=== PATIENT | female | born 1960 | race Caucasian/White ===

== ENCOUNTER → 2017-10-06 | Outpatient (CLI) | payer OTHER ==
[~2017-10-06] MED LIST: DIAZ5 PO; HYDACE5 PO; PRED10 PO
[2017-10-06 18:12] LABS: BASOPHILS ABSOLUTE AUTO 0.07 K/mm3 (0.00-0.23); BASOPHILS PERCENT AUTO 1 % (0-2); EOSINOPHILS ABSOLUTE AUTO 0.25 K/mm3 (0.00-0.68); EOSINOPHILS PERCENT AUTO 3 % (0-6); Hematocrit 40.1 % (33.0-51.0); Hemoglobin 13.8 g/dL (11.5-16.0); IMMATURE GRAN ABSOLUTE AUTO 0.02 K/mm3 (0.00-0.10); IMMATURE GRAN PERCENT AUTO 0 % (0-1); LYMPHOCYTES ABSOLUTE AUTO 2.34 K/mm3 (0.84-5.20); LYMPHOCYTES PERCENT AUTO 26 % (21-46); MONOCYTES ABSOLUTE AUTO 0.47 K/mm3 (0.16-1.47); MONOCYTES PERCENT AUTO 5 % (4-13); Mean Corpuscular HGB 30.7 pg (26.0-34.0); Mean Corpuscular HGB Conc 34.4 g/dL (31.5-36.5); Mean Corpuscular Volume 89 fL (80-100); Mean Platelet Volume 9.8 fL (9.1-12.4); NEUTROPHILS PERCENT AUTO 65 % (41-73); Platelet Count 364 K/mm3 (150-400); RDW Coefficient Variation 12.4 % (11.7-14.2); RDW Standard Deviation 40.5 fL (35.1-46.3); White Blood Cell Count 8.95 K/mm3 (4.00-11.30)
[2017-10-06 18:22] LABS: Alanine Aminotransfer (ALT/SGP 22 U/L (12-78); Albumin, Blood 3.9 g/dL (3.4-5.0); Albumin/Globulin Ratio 1.1 (0.8-1.8); Alk Phos 121 U/L (50-136); Anion Gap 10 mmol/L (6-16); Aspartate Aminotrans (AST/SGOT 16 U/L (12-37); Bilirubin, Total 0.4 mg/dL (0.1-1.0); Blood Urea Nitrogen 12 mg/dL (8-24); Bun/Creatinine Ratio 16.5 (12.0-20.0); CHOL/HDL RATIO 5.1; CO2, Blood 24 mmol/L (21-32); Calcium, Blood 9.1 mg/dL (8.5-10.1); Chloride, Blood 107 mmol/L (98-108); Cholesterol 260 mg/dL (50-200); Creatinine, Blood 0.73 mg/dL (0.40-1.00); Globulin, Blood 3.7 g/dL (2.2-4.0); Glomerular Filtration Rate >60 (60-); Glucose, Blood 96 mg/dL (70-99); HDL Cholesterol 51 mg/dL (>39); LDL/HDL RATIO 2.9; Low Density Lipoprotein Chol 146 mg/dL (0-110); Potassium, Blood 3.8 mmol/L (3.5-5.5); Sodium, Blood 141 mmol/L (136-145); Total Protein, Blood 7.6 g/dL (6.4-8.2); Triglycerides 313 mg/dL (30-160); Very Low Density Lipoprot Chol 62 mg/dL (6-32)
[2017-10-06 18:25] LABS: Thyroid Stimulating Hormone 0.708 uIU/mL (0.360-4.800)
[2017-10-08 06:18] LABS: COMPLEMENT C3, SERUM 180 mg/dL (82-167); COMPLEMENT C4, SERUM 27 mg/dL (14-44)
== END ==
LOC: LAB SHORT 11:15 → LAB 11:15
PROVIDERS: Nurse Practitioner Adult Health
DX: R10.11 Right upper quadrant pain (principal); G89.4 Chronic pain syndrome; R11.2 Nausea with vomiting, unspecified; R20.2 Paresthesia of skin; R03.0 Elevated blood-pressure reading, without diagnosis of hypertension
CPT/HCPCS: 80053; 80061; 84439; 84443; 85025; 86430

== ENCOUNTER → 2017-10-15 | Outpatient (CLI) | payer OTHER ==
[2017-10-19 15:07] LABS: HPV 16 Negative (Negative); HPV 18 Negative (Negative); HPV OTHER HR TYPES Negative (Negative)
== END ==
LOC: LAB SHORT 15:37 → LAB 15:37
PROVIDERS: Registered Nurse Community Health
DX: Z12.4 Encounter for screening for malignant neoplasm of cervix (principal)
CPT/HCPCS: 87624; G0123

== ENCOUNTER 2020-07-21 14:58 | Emergency (ER) | payer BC, OTHER ==
[~2020-07-21] VITALS: Ht 157.5 cm; Wt 113.4 kg
[2020-07-21] MEDS ORDERED: OMEP20ER PO (15:14)
[2020-07-21] MEDS ORDERED: Venlafaxine HCl75 MG PO (15:14)
[2020-07-21] MEDS ORDERED: PREGABALIN PO (15:14)
[2020-07-21] MEDS ORDERED: Simvastatin20 MG PO (15:14)
[2020-07-21 15:34] LABS: BASOPHILS ABSOLUTE AUTO 0.06 K/mm3 (0.00-0.23); BASOPHILS PERCENT AUTO 1 % (0-2); EOSINOPHILS PERCENT AUTO 2 % (0-6); Hematocrit 37.8 % (33.0-51.0); Hemoglobin 12.5 g/dL (11.5-16.0); IMMATURE GRAN ABSOLUTE AUTO 0.03 K/mm3 (0.00-0.10); IMMATURE GRAN PERCENT AUTO 0 % (0-1); LYMPHOCYTES ABSOLUTE AUTO 1.93 K/mm3 (0.84-5.20); LYMPHOCYTES PERCENT AUTO 17 % (21-46); MONOCYTES ABSOLUTE AUTO 0.68 K/mm3 (0.16-1.47); MONOCYTES PERCENT AUTO 6 % (4-13); Mean Corpuscular HGB 31.3 pg (26.0-34.0); Mean Corpuscular HGB Conc 33.1 g/dL (31.5-36.5); Mean Corpuscular Volume 95 fL (80-100); Mean Platelet Volume 10.1 fL (9.1-12.4); NEUTROPHILS ABSOLUTE AUTO 8.83 K/mm3 (1.96-9.15); NEUTROPHILS PERCENT AUTO 75 % (41-73); Platelet Count 270 K/mm3 (150-400); RDW Coefficient Variation 12.8 % (11.7-14.2); RDW Standard Deviation 44.3 fL (35.1-46.3); White Blood Cell Count 11.73 K/mm3 (4.00-11.30)
[2020-07-21 16:02] LABS: Alanine Aminotransfer (ALT/SGP 20 U/L (12-78); Albumin, Blood 3.8 g/dL (3.4-5.0); Albumin/Globulin Ratio 1.1 (0.8-1.8); Alk Phos 110 U/L (50-136); Anion Gap 5 mmol/L (6-16); Aspartate Aminotrans (AST/SGOT 15 U/L (12-37); Bilirubin, Total 0.3 mg/dL (0.1-1.0); Blood Urea Nitrogen 19 mg/dL (8-24); Bun/Creatinine Ratio 22.2 (12.0-20.0); CO2, Blood 23 mmol/L (21-32); Calcium, Blood 8.9 mg/dL (8.5-10.1); Chloride, Blood 113 mmol/L (98-108); Creatinine, Blood 0.86 mg/dL (0.40-1.00); Globulin, Blood 3.4 g/dL (2.2-4.0); Glomerular Filtration Rate >60 (60-); Glucose, Blood 111 mg/dL (70-99); Sodium, Blood 141 mmol/L (136-145); Total Protein, Blood 7.2 g/dL (6.4-8.2)
[2020-07-21] MEDS ORDERED: Norco 5-325 Ta1 EACH PO (18:30)
[2020-07-25] MEDS ORDERED: LISI5 (09:01)
[2020-07-25] MEDS ORDERED: VENLAFAXINE H37.5 M1 PO (20:27)
[2020-07-25] MEDS ORDERED: PREG75 PO (21:27)
[2020-07-26] MEDS ORDERED: AMLO5 PO (16:53)
[2020-07-26] MEDS ORDERED: BENADRYL25 MG PO (16:54)
[2020-07-26] MEDS ORDERED: PRED20 PO (16:55)
[2020-07-26] MEDS ORDERED: HYDR1TAB94 PO (16:55)
== END 2020-07-21 18:40 | disposition home or self-care (01) ==
LOC: ER 14:58
PROVIDERS: Emergency Medicine
DX: S52.501A Unspecified fracture of the lower end of right radius, initial encounter for closed fracture (principal); S50.312A Abrasion of left elbow, initial encounter; Z88.0 Allergy status to penicillin; Z88.1 Allergy status to other antibiotic agents; Z88.8 Allergy status to other drugs, medicaments and biological substances; Z79.899 Other long term (current) drug therapy; V58.5XXA Driver of pick-up truck or van injured in noncollision transport accident in traffic accident, initial encounter; Y92.410 Unspecified street and highway as the place of occurrence of the external cause
CPT/HCPCS: 25605; 70450; 71260; 72125; 73090; 73100; 73562-LT; 73610; 74177; 80053; 85025; 93005; 93010; 99152; 99153; 99285-25; J2704; J7030; Q9967

== ENCOUNTER 2020-07-25 08:10 | Day surgery (SDC) | payer OTHER, BC ==
[~2020-07-25] VITALS: Ht 154.9 cm; Wt 114.2 kg
[~2020-07-25 08:10] MED LIST changes: +Norco 5-325 Ta1 EACH PO; +OMEP20ER PO; +PREGABALIN PO; +Simvastatin20 MG PO; +Venlafaxine HCl75 MG PO
[2020-07-25] MEDS ORDERED: LISI5 ×2 (09:01)
--- NOTE | 2020-07-25 09:22 | NUR ---
07/25/[address] ASSESSED THE PATIENT AND ASKED THAT PAS BE PUT ON RIGHT LEG ONLY DUE TO BRUISING AND ABRASIONS
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
[2020-07-25] MEDS ORDERED: VENLAFAXINE H37.5 M1 PO ×2 (20:27)
[2020-07-25] MEDS ORDERED: PREG75 PO ×2 (21:27)
[2020-07-26] MEDS ORDERED: AMLO5 PO ×2 (16:53)
[2020-07-26] MEDS ORDERED: BENADRYL25 MG PO ×2 (16:54)
[2020-07-26] MEDS ORDERED: HYDR1TAB94 PO ×2 (16:55)
[2020-07-26] MEDS ORDERED: PRED20 PO ×2 (16:55)
== END 2020-07-25 12:47 | disposition home or self-care (01) ==
LOC: ORSCSDS 08:10
PROVIDERS: Orthopaedic Surgery
PROC: 0PSH04Z Reposition Right Radius with Internal Fixation Device, Open Approach (ICD-10-PCS; principal; 2020-07-25 09:00)
DX: S52.501A Unspecified fracture of the lower end of right radius, initial encounter for closed fracture (principal); I10 Essential (primary) hypertension; J45.909 Unspecified asthma, uncomplicated; K21.9 Gastro-esophageal reflux disease without esophagitis; E78.5 Hyperlipidemia, unspecified; E66.01 Morbid (severe) obesity due to excess calories; Z68.42 Body mass index [BMI] 45.0-49.9, adult; M79.7 Fibromyalgia; Z79.899 Other long term (current) drug therapy
CPT/HCPCS: C1713; J0171; J0690; J1100; J1885; J2250; J2405; J2704; J3010; J7120

== ENCOUNTER 2020-07-25 19:08 | Inpatient (IN) | payer BC ==
[~2020-07-25] VITALS: Ht 154.9 cm; Wt 113.4 kg
[~2020-07-25 19:08] MED LIST changes: +LISI5
[2020-07-25 20:18] LABS: BASOPHILS ABSOLUTE AUTO 0.02 K/mm3 (0.00-0.23); BASOPHILS PERCENT AUTO 0 % (0-2); EOSINOPHILS PERCENT AUTO 0 % (0-6); Hematocrit 39.6 % (33.0-51.0); Hemoglobin 13.2 g/dL (11.5-16.0); IMMATURE GRAN ABSOLUTE AUTO 0.04 K/mm3 (0.00-0.10); IMMATURE GRAN PERCENT AUTO 0 % (0-1); LYMPHOCYTES ABSOLUTE AUTO 1.22 K/mm3 (0.84-5.20); LYMPHOCYTES PERCENT AUTO 11 % (21-46); MONOCYTES ABSOLUTE AUTO 0.12 K/mm3 (0.16-1.47); MONOCYTES PERCENT AUTO 1 % (4-13); Mean Corpuscular HGB 31.4 pg (26.0-34.0); Mean Corpuscular HGB Conc 33.3 g/dL (31.5-36.5); Mean Corpuscular Volume 94 fL (80-100); Mean Platelet Volume 10.2 fL (9.1-12.4); NEUTROPHILS ABSOLUTE AUTO 10.09 K/mm3 (1.96-9.15); NEUTROPHILS PERCENT AUTO 88 % (41-73); Platelet Count 320 K/mm3 (150-400); RDW Coefficient Variation 12.7 % (11.7-14.2); RDW Standard Deviation 43.8 fL (35.1-46.3); Red Blood Cell Count 4.21 M/mm3 (3.80-5.20); White Blood Cell Count 11.49 K/mm3 (4.00-11.30)
[2020-07-25] MEDS ORDERED: VENLAFAXINE H37.5 M1 PO ×2 (20:27)
[2020-07-25 20:28] LABS: Bun/Creatinine Ratio 22.1 (12.0-20.0); Calcium, Blood 9.1 mg/dL (8.5-10.1); Creatinine, Blood 1.04 mg/dL (0.40-1.00); Potassium, Blood 4.6 mmol/L (3.5-5.5)
[2020-07-25] MEDS ORDERED: PREG75 PO ×2 (21:27)
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
--- NOTE | 2020-07-26 | NUR ---
REASSESSMENT NO ACUTE CHANGES FROM INITIAL ASSESSMENT. VITALS STABLE. PATIENT TOLERATING CPAP WITH 4L 02 BLEED IN. SWELLING OF TONGUE AND LIPS UNCHANGED. MEDICATED PRESCRIBED. CALL LIGHT IN REACH.
--- NOTE | 2020-07-26 01:13 | NUR ---
BLOOD PRESSURE REPORTED PATIENT'S BLOOD PRESSURE TO DR. MORRISON. RECEIVED ORDERS TO DISCONTINUE IV FLUIDS. WILL TREAT PRESCRIBED.
[2020-07-26 03:50] LABS: BASOPHILS ABSOLUTE AUTO 0.01 K/mm3 (0.00-0.23); BASOPHILS PERCENT AUTO 0 % (0-2); EOSINOPHILS PERCENT AUTO 0 % (0-6); Hematocrit 34.6 % (33.0-51.0); Hemoglobin 11.6 g/dL (11.5-16.0); IMMATURE GRAN ABSOLUTE AUTO 0.04 K/mm3 (0.00-0.10); IMMATURE GRAN PERCENT AUTO 0 % (0-1); LYMPHOCYTES ABSOLUTE AUTO 1.16 K/mm3 (0.84-5.20); LYMPHOCYTES PERCENT AUTO 12 % (21-46); MONOCYTES ABSOLUTE AUTO 0.11 K/mm3 (0.16-1.47); MONOCYTES PERCENT AUTO 1 % (4-13); Mean Corpuscular HGB 31.3 pg (26.0-34.0); Mean Corpuscular HGB Conc 33.5 g/dL (31.5-36.5); Mean Corpuscular Volume 93 fL (80-100); Mean Platelet Volume 9.9 fL (9.1-12.4); NEUTROPHILS ABSOLUTE AUTO 8.67 K/mm3 (1.96-9.15); NEUTROPHILS PERCENT AUTO 87 % (41-73); Platelet Count 274 K/mm3 (150-400); RDW Coefficient Variation 12.7 % (11.7-14.2); RDW Standard Deviation 43.9 fL (35.1-46.3); Red Blood Cell Count 3.71 M/mm3 (3.80-5.20); White Blood Cell Count 9.99 K/mm3 (4.00-11.30)
[2020-07-26 04:08] LABS: Anion Gap 6 mmol/L (6-16); Blood Urea Nitrogen 22 mg/dL (8-24); Bun/Creatinine Ratio 25.4 (12.0-20.0); CO2, Blood 23 mmol/L (21-32); Calcium, Blood 8.7 mg/dL (8.5-10.1); Chloride, Blood 113 mmol/L (98-108); Creatinine, Blood 0.87 mg/dL (0.40-1.00); Glomerular Filtration Rate >60 (60-); Glucose, Blood 153 mg/dL (70-99); Potassium, Blood 4.1 mmol/L (3.5-5.5); Sodium, Blood 142 mmol/L (136-145)
--- NOTE | 2020-07-26 04:20 | NUR ---
REASSESSMENT NO ACUTE CHANGES FROM PREVIOUS ASSESSMENT. PATIENT USING CALL LIGHT APPROPRIATELY. STANDBY ASSIST TO TOILET. CLEAR, YELLOW URINE. CPAP AT WITH 4L 02 BLEED IN REPLACED. REMAINS SALINE LOCKED. CALL LIGHT IN REACH.
--- NOTE | 2020-07-26 06:19 | NUR ---
SHIFT SUMMARY PATIENT ADMITTED PREVIOUSLY CHARTED. SWELLING INITIALLY TO LIPS AND TONGUE. SWELLING HAS IMPROVED WITH LIPS BACK TO NORMAL SIZE AND TONGUE REDUCING IN SIZE, BUT STILL NOTABLY SWOLLEN. PATIENTS RIGHT ARM WITH SURGICAL DRESSING AND SLING REPORTED NUMB RELATED TO THE NERVE BLOCK. THIS MORNING PATIENT IS ABLE TO MOVE RIGHT ARM WITH COMPLETE FEELING, DENIES PAIN. HYPERTENSION NOTED AND IV FLUIDS WERE STOPPED. BLOOD PRESSURE HAS TRENDED DOWN. PATIENT WITH STEADY GAIT TO TOILET WITH CLEAR, YELLOW URINE OUTPUT. REPORTS OF A MILD HEADACHE, RECEIVED ORDERS FOR TYLENOL FROM DR. JOSE. PATIENT IS RESTING AT THIS TIME, WILL MEDICATE WHEN SHE AWAKENS. PATIENT TOLERATED CPAP THROUGH NIGHT WITH 4L 02 BLEED IN. MAINTAINED SATS ABOVE 95%. WILL CONTINUE TO MONITOR PATIENT AND REPORT TO ONCOMING RN.
--- NOTE | 2020-07-26 09:24 | NUR ---
ASSUMED CARE REPORT FROM STEW SOARES AT 0700. PT RESTING IN BED. A&OX 4. ANSWERS QUESTIONS APPROPRIATELY. FOLLOWS COMMANDS. STATES SWELLING TO TONGUE IMPROVED. SPEECH CLEAR, RASPY VOICE. DENIES DIFFICULTIES BREATHING. LUNGS CLEAR. PT P/W/D. MANAGING SECRETIONS s DIFFICULTY. VSS. SPLINT AND SLING TO RIGHT ARM. SWELLING TO FINGERS. ABLE TO MOVE s DIFFICULTY. DENIES PAIN. STAND BY ASSIST TO TRANSFER TO BATHROOM. ABLE TO SHIFT AND REPOSITION SELF IN BED. WILL CONTINUE TO MONITOR.
[2020-07-26] MEDS ORDERED: AMLO5 PO ×2 (16:53)
[2020-07-26] MEDS ORDERED: BENADRYL25 MG PO ×2 (16:54)
[2020-07-26] MEDS ORDERED: HYDR1TAB94 PO ×2 (16:55)
[2020-07-26] MEDS ORDERED: PRED20 PO ×2 (16:55)
--- NOTE | 2020-07-26 17:43 | NUR ---
PT DISCHARGED HOME WITH HER , ALL BELONGINS SENT WITH PT. DISCHARGE TEACHING REVIEWED WITH THIS RN, INCLUDING MEDICATION LIST, NEW PRESCRIPTIONS AND FOLLOW UP APPOINTMENTS. PT AND HER VERBALIZED UNDERSTANDING. WRITTEN RX FOR NORCO GIVEN TO PT TO TAKE TO HER PHARMACY. NEW PRESCRIPTIONS CALLED TO [facility] AT PT'S REQUEST. NO FURTHER DISCHARGE NEEDS AT THIS TIME.
== END 2020-07-26 17:41 | disposition home or self-care (01) | DRG 916 ==
LOC: ER 19:08 → ICUW 20:47
PROVIDERS: Emergency Medicine; ADMIT Family Medicine
DX: T78.3XXA Angioneurotic edema, initial encounter (principal); Z68.42 Body mass index [BMI] 45.0-49.9, adult; T36.1X5A Adverse effect of cephalosporins and other beta-lactam antibiotics, initial encounter; T46.4X5A Adverse effect of angiotensin-converting-enzyme inhibitors, initial encounter; G47.33 Obstructive sleep apnea (adult) (pediatric); G43.909 Migraine, unspecified, not intractable, without status migrainosus; M19.90 Unspecified osteoarthritis, unspecified site; M79.7 Fibromyalgia; E78.5 Hyperlipidemia, unspecified; G47.10 Hypersomnia, unspecified; E66.9 Obesity, unspecified; I12.9 Hypertensive chronic kidney disease with stage 1 through stage 4 chronic kidney disease, or unspecified chronic kidney disease; N18.30 Chronic kidney disease, stage 3 unspecified; D72.829 Elevated white blood cell count, unspecified; Z88.1 Allergy status to other antibiotic agents; Z88.5 Allergy status to narcotic agent; Z88.0 Allergy status to penicillin; Z88.8 Allergy status to other drugs, medicaments and biological substances; Z79.899 Other long term (current) drug therapy; Z86.11 Personal history of tuberculosis; Z98.890 Other specified postprocedural states
CPT/HCPCS: 36415; 70450; 80048; 85025; 94660; 96372-59; 96374; 96375; 99285-25; A9270; J0171; J1200; J1650; J2930; J7030

== ENCOUNTER → 2021-03-04 | Outpatient (CLI) | payer OTHER, BC ==
[~2021-03-04] MED LIST changes: +AMLO5 PO; +BENADRYL25 MG PO; +HYDR1TAB94 PO; +PRED20 PO; +PREG75 PO; +VENLAFAXINE H37.5 M1 PO
[2021-03-05 13:50] LABS: Stool Occult Bld Immuno 1 Negative (NEGATIVE)
[2021-03-05 14:49] LABS: Adenovirus F 40/41 Not Detected (NOT DETECT); Astrovirus Not Detected (NOT DETECT); Campylobacter Sp Not Detected (NOT DETECT); Cryptosporidium Not Detected (NOT DETECT); Cyclospora Cayetanensis Not Detected (NOT DETECT); E. Coli O157 Not Detected (NOT DETECT); Entamoeba Histolytica Not Detected (NOT DETECT); Enteroaggregative E. coli-EAEC Not Detected (NOT DETECT); Enteropathogenic E. coli-EPEC Not Detected (NOT DETECT); Enterotoxigenic E. coli-ETEC Not Detected (NOT DETECT); Giardia Lamblia Not Detected (NOT DETECT); Norovirus GI/GII Not Detected (NOT DETECT); Plesiomonas Shigelloides Not Detected (NOT DETECT); Rotavirus A Not Detected (NOT DETECT); Salmonella Sp Not Detected (NOT DETECT); Sapovirus Not Detected (NOT DETECT); Shiga Toxin-prod E. coli-STEC Not Detected (NOT DETECT); Shigella/Enteroin E. coli-EIEC Not Detected (NOT DETECT); Vibrio Cholerae Not Detected (NOT DETECT); Vibrio Sp Not Detected (NOT DETECT); Yersinia Enterocolitica Not Detected (NOT DETECT)
== END | disposition home or self-care (01) ==
LOC: LAB 13:30 → LAB SHORT 13:30
PROVIDERS: Nurse Practitioner Family
DX: R19.7 Diarrhea, unspecified (principal)
CPT/HCPCS: 0097U; G0328

== ENCOUNTER → 2022-02-12 | Outpatient (CLI) | payer OTHER | END | disposition home or self-care (01) | LOC: LAB SHORT 15:30 → LAB 15:30 | PROVIDERS: Nurse Practitioner Family | DX: Z12.4 Encounter for screening for malignant neoplasm of cervix (principal) | CPT/HCPCS: G0145 ==